=== PATIENT | male | born 1955 | race Caucasian/White ===

== ENCOUNTER 2021-11-19 12:14 | Emergency (ER) | payer BC, OTHER, SELFPAY ==
[2021-11-19 12:33] VITALS: BP 126/78; PULSE 105; RESP 22; TEMP 37.1; O2SAT 95
--- NOTE | 2021-11-19 12:51 | CRLHL7_ITS ---
For Patients: As a result of the Century Cures Act, medical imaging exams and procedure reports are released immediately into your electronic medical record. You may view this report before your referring provider. If you have questions, please contact your health care provider. INDICATION: Shortness of breath, cough TECHNIQUE: CT chest without contrast. COMPARISON: Chest CT November 12, 2021. FINDINGS: Lungs and Airways: Severe upper lobe predominant centrilobular emphysema. Worsening lingular/left upper lobe consolidation/atelectasis. Now with near complete opacification. Similar appearance of bronchial stents. Respiratory motion predominately in the lung bases degrades fine detail evaluation. Dependent left basilar passive atelectasis. No central intraluminal lesion. Heart and Mediastinum: The visualized portions of the thyroid are normal. No axillary or supraclavicular lymphadenopathy. Conspicuous nonenlarged mediastinal lymph nodes. Normal heart size. Normal caliber aorta. Atherosclerotic aorta. Pleura: Small left pleural effusion, increased in size compared to the previous exam. Abdomen: Small fat containing left Bochdalek hernia. Large hiatal hernia. Motion in the upper abdomen degrades fine detail evaluation. Bones and soft tissues: Advanced right glenohumeral joint arthrosis. Old left-sided rib fractures. No suspicious lytic or blastic lesions. IMPRESSION: 1. Worsening lingular/left upper lobe consolidation/atelectasis now with near complete opacification. Stable appearance of bronchial wall stents. Recommend correlation with patient clinical history to assess for possible malignancy versus pneumonia. Recommend unenhanced chest CT in 3 months to document resolution. 2. Increasing size of small left pleural effusion. Please note that all CT scans at this facility use dose modulation, iterative reconstruction, and/or weight-based dosing when appropriate to reduce radiation dose to as low as reasonably achievable. Dictated by Joe Dupree MD @ 11/19/2021 2:35:31 PM (Electronically Signed)
--- NOTE | 2021-11-19 12:53 | ED.SOB ---
HPI - SOB/Dyspnea General Chief Complaint: Shortness of Breath/Dyspnea Stated Complaint: Shortness of breath Time Seen by Provider: 11/19/21 12:27 History of Present Illness HPI Narrative: This 66-year-old male comes in reporting shortness of breath and cough. He has COPD and about a month ago head surgery to his lungs to do with obstruction. He had a CT scan a couple weeks ago which showed evidence of pneumonia. He finished taking doxycycline and also was on a steroid. He states that he is not feeling any better. He continues to have a cough with green sputum. He has been on home oxygen at 2-3 liters/minute but prior to the pneumonia was weaning off of this. Today he feels worse and is using 3 L nasal cannula. He arrives with normal vital signs and oximetry on 3 L at 95%. He does have some tachycardia with heart rate at 105 beats per minute. He denies having any fevers. He does not report any unilateral leg pain or swelling. He does not have any chest pain except he has some pain in his left lateral ribs. Related Data Home Medications Medication Instructions Recorded Confirmed albuterol sulfate 2.5 mg/3 mL mg 11/19/21 (0.083 %) solution for nebulization levothyroxine 137 mcg tablet mcg 11/19/21 (Synthroid) tiotropium 2.5 mcg-olodaterol 2.5 inhalation 11/19/21 mcg/actuation mist for inhalation (Stiolto Respimat) tixagevimab 150 mg/1.5 ml IM 11/19/21 mL-cilgavimab 150 mg/1.5 mL IM solution (EUA) (Mor (EUA)) Previous Rx's Medication Instructions Recorded hydrocodone 5 mg-acetaminophen 325 1 tab PO Q4-6H PRN pain #20 tabs 11/19/21 mg tablet levofloxacin 500 mg tablet 500 mg PO DAILY 10 days #10 tabs 11/19/21 Allergies Allergy/AdvReac Type Severity Reaction Status Date / Time No Known Drug Allergies Allergy Verified 11/19/21 13:15 Review of Systems Status of ROS: Reports: 10 or more systems reviewed and unremarkable except as noted in History and below Narrative: Constitutional: No fevers, no weight gain or loss. Eyes: No discharge. No vision changes. HENT: No congestion, no sore throat, no ear pain. Cardiovascular: No chest pain, no palpitations. Respiratory: Cough and shortness of breath. Left lateral rib pain. Gastrointestinal: No abdominal pain, no vomiting, no diarrhea. Genitourinary: No dysuria, no hematuria. Musculoskeletal: Normal range of motion. Skin: No rashes, no pruritis. Neurological: No dizziness, weakness, sensory change, speech change. Endo/Heme/Allergies: No bruising or bleeding. No polydipsia. Pysch: no suicidality, no anxiety, no insomnia. All other systems reviewed and are negative. Exam Narrative: Exam Narrative: Constitutional: Well-developed, well-nourished, no acute distress. HEENT: Normocephalic, atraumatic. Neck: Normal range of motion. Nontender. Supple. Heart: Regular. No murmurs. Normal rate. Intact distal pulses. Lungs: No wheezes, rhonchi, or rales. Lung sounds seemed diminished in the right upper lung on auscultation. Rib pain on the left lateral ribs. Abdomen: Normal bowel sounds. Nontender. No rebound tenderness. Genitalia: Deferred. Back: No midline tenderness. Normal range of motion. Extremities: Normal range of motion. No injury. Skin: Intact. No rash. Warm. No erythema or pallor. Neurologic: No altered sensation. No weakness. Alert and oriented. Psychiatric: No suicidality. No anxiety or depression. No insomnia. Nursing notes and vitals signs are reviewed. Const: Vital Signs, click to edit/add: Vital Signs - 24 hr 11/19/21 12:33 Temperature 98.8 F Pulse Rate [Left P ulse Oximeter] 105 H Respiratory Rate 22 Blood Pressure [Le ft Upper Arm] 126/78 Pulse Oximetry 95 Oxygen Delivery Me thod Nasal Cannula Oxygen Flow Rate 3 Course Vital Signs Vital signs: Initial Vital Signs Temperature 98.8 F 11/19/21 12:33 Temperature Source Temporal Artery Scan 11/19/21 12:33 Pulse Rate 105 H 11/19/21 12:33 Respiratory Rate 22 11/19/21 12:33 Blood Pressure 126/78 11/19/21 12:33 Blood Pressure Mean 94 11/19/21 12:33 Blood Pressure Position Sitting 11/19/21 12:33 Pulse Oximetry 95 11/19/21 12:33 Oxygen Delivery Method 11/19/21 12:33 Oxygen Flow Rate 3 11/19/21 12:33 Vital Signs Temperature 98.8 F 11/19/21 12:33 Pulse Rate 105 H 11/19/21 12:33 Respiratory Rate 22 11/19/21 12:33 Blood Pressure 126/78 11/19/21 12:33 Pulse Oximetry 95 11/19/21 12:33 Oxygen Delivery Method 11/19/21 12:33 Oxygen Flow Rate 3 11/19/21 12:33 Temperature 98.8 F 11/19/21 12:33 Pulse Rate 105 H 11/19/21 12:33 Respiratory Rate 22 11/19/21 12:33 Blood Pressure 126/78 11/19/21 12:33 Pulse Oximetry 95 11/19/21 12:33 Oxygen Delivery Method 11/19/21 12:33 Oxygen Flow Rate 3 11/19/21 12:33 MDM - SOB/Dyspnea MDM Narrative Medical decision making narrative: This 66-year-old male comes in with cough and shortness of breath. He has been taking doxycycline for a pneumonia. CT imaging of the chest today shows worsening pneumonia with some pleural effusion. He is maintaining sufficient oximetry on 3 L nasal cannula. He has home oxygen and this is what he has been using at home. His white count returns elevated at around 24,000. He has also been taking a steroid which may account for some of the leukocytosis. He has not had a fever. He does not appear to be in much distress and is not using accessory muscles for breathing. His heart rate is a bit elevated. I discussed disposition options with the patient who prefers to return home. He does have home oxygen. A prescription for Levaquin is provided. He has steroid medicine previously described that he will continue to take. I also provided a prescription for [place] as he does have left rib pain and is coughing frequently. [facility]. I advised him to follow-up as soon as possible for recheck and ongoing management. Lab Data Labs: Lab Results 11/19/21 11/19/21 Range/Units 13:12 13:12 WBC 24.21 H (4.50-11.00) K/uL RBC 3.94 L (4.30-5.90) m/uL Hgb 10.5 L (13.5-17.5) gm/dL Hct 32.8 L (37.0-53.0) % MCV 83 (80-100) fL MCH 27 (26-34) pg MCHC 32 (32-36) gm/dL RDW Coeff of Stephanie 15.1 (11.5-15.5) % Plt Count 347 (140-440) K/uL Neut % (Auto) 89.7 H (42.0-72.0) % Lymph % (Auto) 2.4 L (20-44) % Trinity % (Auto) 1.9 (0.0-11.0) % Eos % (Auto) 0.0 (0.0-7.0) % Baso % (Auto) 0.0 (0.0-3.0) % Neut # (Auto) 21.70 H (1.7-7.0) K/uL Lymph # (Auto) 0.60 L (0.90-2.90) K/uL Trinity # (Auto) 0.50 (0.00-0.90) K/UL Eos # (Auto) 0.00 (0.00-0.50) K/uL Baso # (Auto) 0.00 (0.00-0.30) K/uL Abs Immat Gran (auto) 1.46 H (0.00-0.30) K/uL Diff Slide Review Acceptable Review (Acceptable) Sodium 140 (135-149) mmol/L Potassium 4.2 (3.6-5.1) mmol/L Chloride 103 (96-114) mmol/L Carbon Dioxide 27 (20-32) mmol/L BUN 18 (7-30) mg/dL Creatinine 0.7 (0.5-1.5) mg/dL Estimated GFR 100 ml/min Glucose 138 H (60-115) mg/dL Calcium 8.3 L (8.4-10.6) mg/dL Imaging Data CT scan - chest: Radiologist's impression: 1. Worsening lingular/left upper lobe consolidation/atelectasis now with near complete opacification. Stable appearance of bronchial wall stents. Recommend correlation with patient clinical history to assess for possible malignancy versus pneumonia. Recommend unenhanced chest CT in 3 months to document resolution. 2. Increasing size of small left pleural effusion. Discharge Plan Discharge Clinical Impression: Community acquired pneumonia, Pleural effusion Patient Disposition: Home, Self-Care Condition: Unchanged Additional Instructions: Take medication as prescribed. Continue other current medications as prescribed. Follow up with primary physician as soon as possible or return if worsening. Prescriptions: New hydrocodone-acetaminophen 5-325 mg tablet 1 tab PO Q4-6H PRN (Reason: pain) Qty: 20 0RF levofloxacin 500 mg tablet 500 mg PO DAILY 10 Days Qty: 10 0RF No Action levothyroxine [Synthroid] 137 mcg tablet albuterol sulfate 2.5 mg /3 mL (0.083 %) solution for nebulization Stiolto Respimat 2.5-2.5 mcg/actuation mist INHALATION [place] (EUA) 150 mg/1.5 mL- 150 mg/1.5 mL solution IM Label Comments: Inject 2 vials (300 mg tixagevimab + 300 mg cilgavimab) solution IM once every 6 months Follow Up/Referrals: Provider,Not a Local [Referring] - Stand Alone Forms: [facility] Info Instructions
[2021-11-19 13:22] LABS: Hematocrit 32.8 % (37.0-53.0); Hemoglobin* 10.5 gm/dL (13.5-17.5); Immature Granulocytes Abs Auto 1.46 K/uL (0.00-0.30); Lymphocytes Percent Auto 2.4 % (20-44); Mean Corpuscular HGB Conc 32 gm/dL (32-36); Mean Corpuscular Hemoglobin 27 pg (26-34); Mean Corpuscular Volume 83 fL (80-100); Monocytes Percent Auto 1.9 % (0.0-11.0); Neutrophils Percent Auto 89.7 % (42.0-72.0); Platelet Count* 347 K/uL (140-440); RDW Coefficient of Variation % 15.1 % (11.5-15.5); Red Blood Count 3.94 m/uL (4.30-5.90); White Blood Count* 24.21 K/uL (4.50-11.00)
[2021-11-19 13:27] LABS: Slide Review Reflex Yes
[2021-11-19 13:34] LABS: Chloride* 103 mmol/L (96-114); Potassium* 4.2 mmol/L (3.6-5.1); Sodium* 140 mmol/L (135-149)
[2021-11-19 13:36] LABS: Creatinine* 0.7 mg/dL (0.5-1.5); Estimated Glomerular Filt Rate 100 ml/min
[2021-11-19 13:37] LABS: Blood Urea Nitrogen* 18 mg/dL (7-30); Calcium* 8.3 mg/dL (8.4-10.6); Carbon Dioxide* 27 mmol/L (20-32); Glucose* 138 mg/dL (60-115)
[2021-11-19 13:58] LABS: Slide Review Acceptable Review (Acceptable)
[2021-11-19] MEDS: HYDROCODONE-ACETAMIN 5-325 MG 1 TAB PO (14:10)
[2021-11-19 15:00] VITALS: BP 126/93; PULSE 88; RESP 22; O2SAT 95
[2021-11-19 15:35] VITALS: BP 133/77; PULSE 96; RESP 24; TEMP 37.1
== END 2021-11-19 15:45 | disposition home or self-care (01) ==
PROVIDERS: Emergency Provider Emergency Medicine Emergency Medical Services; PCP Internal Medicine
DX: J18.9 Pneumonia, unspecified organism (principal); J90 Pleural effusion, not elsewhere classified
CPT/HCPCS: 36415; 71250; 80048; 85025; 99284; 99285; A9270